=== PATIENT | male | born 1965 | race American Indian/Alaskan Native ===

== ENCOUNTER 2018-12-15 04:46 | Emergency (ER) | payer BC ==
[2018-12-15 04:46] VITALS: BMI 29.2
[2018-12-15 05:07] VITALS: O2SAT 100
--- NOTE | 2018-12-15 06:15 | C.PDOC ---
History Of Present Illness 53 year old male presents to the ED c/o left elbow pain for the past week. 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 Patient states " I feel a piece in my elbow". Patient denies fever, chills, rash, weakness, numbness. Time Seen by Provider: 12/15/18 05:12 Chief Complaint (Nursing): Lower Extremity Problem/Injury History Per: Patient History/Exam Limitations: no limitations Onset/Duration Of Symptoms: Days (week) Current Symptoms Are (Timing): Still Present Recent travel outside of the [place]: No Additional History Per: Patient Past Medical History Reviewed: Historical Data, Nursing Documentation, Vital Signs Vital Signs: Last Vital Signs Temp 97.8 F 12/15/18 05:01 Pulse 74 12/15/18 05:01 Resp 20 12/15/18 05:01 BP 147/82 12/15/18 05:01 Pulse Ox 100 12/15/18 05:01 Primary Care Provider: Non [facility] Provider, - Medical History PMH: HTN Surgical History: No Surg Hx Family History: States: Unknown Family Hx - Social History Hx Tobacco Use: No Hx Alcohol Use: No Hx Substance Use: No - Immunization History Hx Tetanus Toxoid Vaccination: Yes Hx Influenza Vaccination: Yes Hx Pneumococcal Vaccination: Yes Review Of Systems Constitutional: Negative for: Fever, Chills Gastrointestinal: Negative for: Nausea, Vomiting Musculoskeletal: Positive for: Arm Pain. Negative for: Shoulder Pain, Hand Pain Skin: Negative for: Rash Neurological: Negative for: Weakness, Numbness, Headache, Dizziness Physical Exam - Physical Exam Appears: Non-toxic, No Acute Distress Skin: Normal Color, Warm, Dry, No Rash Head: Atraumatic, Normacephalic Eye(s): bilateral: Normal Inspection Neck: Normal ROM, Supple Extremity: Normal ROM, Tenderness (left elbow), Capillary Refill (< 2 seconds), No Deformity, No Swelling Pulses: Left Radial: Normal, Right Radial: Normal Neurological/Psych: Oriented x3, Normal Speech, Normal Cognition, Normal Motor, Normal Sensation Gait: Steady ED Course And Treatment O2 Sat by Pulse Oximetry: 100 (ON RA) Pulse Ox Interpretation: Normal - Other Rad Left elbow X-Rya X-Ray: Interpreted by Me, Viewed By Me Interpretation: No fracture or dislocation Progress Note: Plan: - Left elbow X-Ray. Patient is resting comfortably, and is in no acute distress. Patient was instructed to follow up with PMD in 1-2 days for further evaluation. Disposition Counseled Patient/Family Regarding: Diagnosis, Need For Followup, Rx Given - Disposition Disposition: HOME/ ROUTINE Disposition Time: 06:16 Condition: STABLE Additional Instructions: Please follow up with PMD Continue advil or motrin for pain Return to ER if worse Instructions: Tendonitis (DC) Forms: [employer] ([place]ian), Work Excuse - Clinical Impression Clinical Impression: Left elbow pain - PA / [employer]OX [employer] / Resident Statement MD/DO has reviewed & agrees with the documentation as recorded. - Scribe Statement The provider has reviewed the documentation as recorded by the Scribe Adán Smith All medical record entries made by the Sandroibnicole were at my direction and personally dictated by me. I have reviewed the chart and agree that the record accurately reflects my personal performance of the history, physical exam, medical decision making, and the department course for this patient. I have also personally directed, reviewed, and agree with the discharge instructions and disposition.
[2018-12-15 06:26] VITALS: PULSE 81; RESP 17; TEMP 98.2
[2018-12-15 06:27] VITALS: BP 139/86
--- NOTE | 2018-12-15 08:26 | RAD ---
Date of service: 12/15/2018 PROCEDURE: Radiographs of the left elbow. HISTORY: pain, swelling s/p injury COMPARISON: No prior. TECHNIQUE: 3 views obtained. FINDINGS: BONES: No fracture JOINTS: Tiny osteophytic spurring ulnar coronoid process and radial head. Osteoarthritis. SOFT TISSUES: Normal. JOINT EFFUSION: None. OTHER FINDINGS: None IMPRESSION: No fracture or dislocation appreciated. Spurring compatible with arthrosis Comments: No preliminary ER impression at this time.
== END 2018-12-15 06:26 | disposition home or self-care (01) ==
LOC: C.ER 04:46
DX: M25.522 Pain in left elbow (principal)